=== PATIENT | female | born 1985 | race American Indian/Alaskan Native ===

== ENCOUNTER 2020-01-21 19:42 | Emergency (ER) | payer OTHER ==
[~2020-01-21] VITALS: Ht 157.5 cm; Wt 61.2 kg
[2020-01-21 19:51] VITALS: BP 107/60
--- NOTE | 2020-01-21 19:54 | NUR ---
TO LOBBY A/W BED AMBULATORY
--- NOTE | 2020-01-21 21:00 | NUR ---
34 YEAR OLD FEMALE COMPLAINS OF LOWER ABDOMINAL PAIN THAT RAIDATES THE BACK SINCE YESTERDAY. PATIENT STATES SHE SEES URINE WITH BLEEDING AND PAINFUL. PATIENT AOX4, BREATHING EVEN AND UNLABORED, SKIN WARM AND DRY. BED IN LOWEST POSITION, LOCKED, BED RAIL UPX1. FAMILY AT BEDSIDE. PMH - OPEN HEART SURGERY ALLERGIES - VICODIN
--- NOTE | 2020-01-21 21:06 | NUR ---
PT AMBULATED TO BED 01
--- NOTE | 2020-01-21 22:11 | NUR ---
PATIENT ALERT AND AWAKE, BREATHING EVEN AND UNLABORED.
--- NOTE | 2020-01-21 22:43 | NUR ---
PATIENT ALERT AND AWAKE, BREATHING EVEN AND UNLABORED.
[2020-01-21 23:50] LABS: APPEARANCE,URINE CLOUDY (CLEAR); COLOR,URINE YELLOW (YELLOW)
[2020-01-21 23:51] LABS: BILIRUBIN,URINE NEGATIVE (NEGATIVE); BLOOD, URINE 4+ (NEGATIVE); LEUKOCYTE ESTERASE ,URINE 2+ (NEGATIVE); NITRITE, URINE NEGATIVE (NEGATIVE); UGLUCOSE NEGATIVE (NEGATIVE)
[2020-01-21 23:52] LABS: RBC,URINE TOO NUMEROUS TO COUN /HPF (0-5); WBC,URINE TOO MANY TO COUNT /HPF (0-5)
[2020-01-22 00:21] VITALS: BP 110/64
== END 2020-01-22 00:21 | disposition home or self-care (01) ==
LOC: MED 19:42
DX: N39.0 Urinary tract infection, site not specified (principal); Z88.5 Allergy status to narcotic agent; Z88.6 Allergy status to analgesic agent
CPT/HCPCS: 81001; 81025; 87086; 87186; 99283